=== PATIENT | male | born 2000 | race African-American/Black ===

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

== ENCOUNTER 2019-02-22 17:53 | Emergency (ER) | payer OTHER ==
--- NOTE | 2019-02-22 18:15 | PDOC ---
Rapid Medical Evaluation Chief Complaint: Laceration Time Seen by Provider: 02/22/19 18:12 Medical Evaluation: Allergies Allergy/AdvReac Type Severity Reaction Status Date / Time amoxicillin Allergy Verified 05/13/17 04:58 02/22/19 18:13 I have performed a brief in person evaluation of the patient. The patient presents with CC: Laceration HPI: Pt states that he cut his left hand at work at 1130 this morning. Pt's tetanus is not UTD PE: Skin: 1 cm laceration between the first and second digits left hand. HEENT: Oropharynx clear Lungs: Clear Heart: RRR MS: Moves all extremities Neuro: Alert Psych: Appropriate affect The patient will proceed to [facility] for further evaluation. Discharge Disposition - Diagnosis Laceration - Referrals - Patient Instructions - Post Discharge Activity
[2019-02-22 18:17] VITALS: BP 120/72; PULSE 74; TEMP 97.9; BMI 25.8
[2019-02-22] MEDS ORDERED: DIPHTH,PERTUSS(ACELL),TET 0.5 ML DISP.SYRIN IM ONE ×2 (18:31→18:52)
--- NOTE | 2019-02-22 18:36 | PDOC ---
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 He states the knife flew out of process machine operator and lacerated his hand. Past History - Past Medical History Allergies/Adverse Reactions: Allergies Allergy/AdvReac Type Severity Reaction Status Date / Time amoxicillin Allergy Verified 02/22/19 18:46 Home Medications: Ambulatory Orders NK [No Known Home Medication] 02/22/19 Anemia: No Asthma: No Cancer: No Cardiac Disorders: No CVA: No COPD: No DVT: No Dementia: No Diabetes: No Dialysis: No GI Disorders: No Disorders: No HTN: No Hypercholesterolemia: No Kidney Stones: No Liver Disease: No Psychiatric Problems: No Seizures: No Thyroid Disease: No Lung CA: No Other medical history: DENIES - Surgical History Abdominal Surgery: No Appendectomy: No Cardiac Surgery: No Cholecystectomy: No Gastric Stapling: No GI Surgery: No Lung Surgery: No Neurologic Surgery: No - Suicide/Smoking/Psychosocial Hx Smoking History: Never smoked Have you smoked in the past 12 months: No Information on smoking cessation initiated: No Hx Alcohol Use: No Drug/Substance Use Hx: No Substance Use Type: Alcohol Review of Systems - Review of Systems Integumentary: Yes: See HPI *Physical Exam - Vital Signs Last Vital Signs Temp Pulse Resp BP Pulse Ox 97.9 F 74 18 120/72 100 02/22/19 18:14 02/22/19 18:14 02/22/19 18:14 02/22/19 18:14 02/22/19 18:14 - Physical Exam Comments: 02/22/19 18:35 Left hand skin color and temperature are normal. There are no gross sensorimotor deficits in the hand full range of motion of all fingers. There is a 1 cm laceration between the thumb and the second finger and in the webspace exposing a small amount of subcutaneous fat. *DC/Admit/Observation/Transfer Diagnosis at time of Disposition: Laceration - Discharge Dispostion Disposition: HOME Condition at time of disposition: Stable Decision to Admit order: No - Referrals Referrals: Rebel Pierre MD [Staff Physician] - - Patient Instructions Printed Discharge Instructions: DI for Laceration Repair Additional Instructions: Please take Tylenol and Motrin as directed for pain. Your tetanus was updated today. Leave the dressing on for the next 48 hours after 48 hours you may remove the dressing and wash her hand with soap and water. Leave it open to air. If you need to work please cover with a dry sterile dressing. He may follow -up with hand surgery in 1-2 days for further evaluation and treatment options. Or return to the emergency room in 10 days for suture removal. Sutures are removed at the 10 day marker after not before. Return to the emergency room sooner if problems develop such as redness pain drainage or swelling from the area. These may be signs of infection. - Post Discharge Activity
--- NOTE | 2019-02-22 19:23 | PDOC ---
*Physical Exam - Vital Signs Last Vital Signs Temp Pulse Resp BP Pulse Ox 97.9 F 74 18 120/72 100 02/22/19 18:14 02/22/19 18:14 02/22/19 18:14 02/22/19 18:14 02/22/19 18:14 ED Treatment Course - Medications Given in the ED: ED Medications Discontinued Medications Generic Name Dose Route Start Last Admin Trade Name Freq PRN Reason Stop Dose Admin Diphtheria/Tetanus/Acell Pertussis 0.5 ml 02/22/19 18:31 02/22/19 18:55 Boostrix - IM 02/22/19 18:32 0.5 ml .ONCE ONE Administration *DC/Admit/Observation/Transfer Diagnosis at time of Disposition: Laceration - Referrals - Patient Instructions - Post Discharge Activity Procedures - Laceration/Wound Repair Left Distal Volar Hand Wound Length: 2.6 to 5.0 cm Wound Explored: clean Wound's Depth, Shape: superficial Irrigated w/ Saline: Yes Betadine Prep: Yes Anesthesia: 1% Lidocaine Amount of Anesthetic (ccs): 5 Wound Debrided: minimal Wound Repaired With: Sutures Suture Size/Type: 5:0 Number of Sutures: 3 Layer Closure: No Sterile Dressing Applied: Yes Splint Applied: No
== END 2019-02-22 19:41 | disposition home or self-care (01) ==
LOC: JERFT 17:53
PROC: 0HQGXZZ Repair Left Hand Skin, External Approach (ICD-10-PCS; principal; 2019-02-22)
PROC: 3E0234Z Introduction of Serum, Toxoid and Vaccine into Muscle, Percutaneous Approach (ICD-10-PCS; 2019-02-22)
DX: S61.412A Laceration without foreign body of left hand, initial encounter (principal); W26.0XXA Contact with knife, initial encounter; Y93.G1 Activity, food preparation and clean up; Y92.89 Other specified places as the place of occurrence of the external cause; Y99.0 Civilian activity done for income or pay
CPT/HCPCS: 90715; 99281-25

== ENCOUNTER 2019-03-04 13:22 | Emergency (ER) | payer OTHER ==
[2019-03-04 13:26] VITALS: BP 120/69; PULSE 65; TEMP 98; BMI 26.6
--- NOTE | 2019-03-04 13:57 | PDOC ---
History of Present Illness - General Chief Complaint: Suture/Staple Removal(Here) Stated Complaint: REMOVE STITCHES Time Seen by Provider: 03/04/19 13:40 History Source: Patient Exam Limitations: No Limitations - History of Present Illness Initial Comments: 03/04/19 13:51 19 yo M w/ no sig PMHx comes in for suture removal. He had sutures placed in his L hand after sustaining a laceration on 02/22. He was trying to push down some onions in a [employer] while on, and the blade flew, causing him to sustain a hand laceration. No complaints today, wound healing well, no fever/chills, no NVD, applied bacitracin the first 3 days. No swelling, no discharge from wound. 03/04/19 14:09 Past History - Past Medical History Allergies/Adverse Reactions: Allergies Allergy/AdvReac Type Severity Reaction Status Date / Time amoxicillin Allergy Verified 02/22/19 18:46 Home Medications: Ambulatory Orders NK [No Known Home Medication] 02/22/19 Anemia: No Asthma: No Cancer: No Cardiac Disorders: No CVA: No COPD: No DVT: No Dementia: No Diabetes: No Dialysis: No GI Disorders: No Disorders: No HTN: No Hypercholesterolemia: No Kidney Stones: No Liver Disease: No Psychiatric Problems: No Seizures: No Thyroid Disease: No Lung CA: No - Surgical History Abdominal Surgery: No Appendectomy: No Cardiac Surgery: No Cholecystectomy: No Gastric Stapling: No GI Surgery: No Lung Surgery: No Neurologic Surgery: No - Suicide/Smoking/Psychosocial Hx Smoking History: Unknown if ever smoked Have you smoked in the past 12 months: No Hx Alcohol Use: No Drug/Substance Use Hx: No Substance Use Type: Alcohol Review of Systems - Review of Systems Able to Perform ROS?: Yes Constitutional: No: Chills, Fever, Malaise, Night Sweats HEENTM: No: Eye Pain, Recent change in vision, Throat Pain Respiratory: No: Cough, Shortness of Breath Cardiac (ROS): No: Chest Pain, Palpitations, Chest Tightness ABD/GI: No: Diarrhea, Nausea, Vomiting, Abdominal cramping : No: Dysuria, Hematuria Musculoskeletal: No: Back Pain Integumentary: No: Rash Neurological: No: Headache, Numbness, Dizziness Psychiatric: No: Change in Appetite Endocrine: No: Unexplained Weight Loss *Physical Exam - Vital Signs Last Vital Signs Temp Pulse Resp BP Pulse Ox 98 F 65 20 120/69 100 03/04/19 13:22 03/04/19 13:22 03/04/19 13:22 03/04/19 13:22 03/04/19 13:22 - Physical Exam General Appearance: Yes: Nourished. No: Apparent Distress HEENT: positive: SUNITHA, Normal ENT Inspection, Normal Voice. negative: Pale Conjunctivae, Scleral Icterus (R), Scleral Icterus (L) Neck: positive: Supple. negative: Decreased range of motion, Tender midline Respiratory/Chest: negative: Respiratory Distress, Accessory Muscle Use Cardiovascular: positive: Regular Rate Musculoskeletal: positive: Normal Inspection Extremity: positive: Normal Capillary Refill, Normal Range of Motion, Other (L hand with a 2.5-3cm laceration with [address] NO surrounding erythema/swelling, no discharge, no dehiscence, no tenderenss, no signs of infection. FROM all fingers including thumb with 5/5 strength, full sensory function. Goop cap refill. NVI). negative: Tender Integumentary: positive: Normal Color, Dry. negative: Jaundice, Rash Neurologic: positive: Fully Oriented, Alert, Normal Mood/Affect Medical Decision Making - Medical Decision Making 03/04/19 14:32 19 yo here for suture removal. 3 suture removed, using scissors and pick ups, no dehiscence. 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 Advised to keep the wound clean and dry until it heals completely. PMD follow up. Return for worsening/concerning symptoms. Pt verbalizes understanding and agrees with plan. *DC/Admit/Observation/Transfer Diagnosis at time of Disposition: Visit for suture removal - Discharge Dispostion Disposition: HOME Condition at time of disposition: Stable - Referrals - Patient Instructions Additional Instructions: Keep the wound clean and dry and covered until completely healed. FOllow up with your regular doctor. Return for worsening/concerning symptoms. - Post Discharge Activity
== END 2019-03-04 13:59 | disposition home or self-care (01) ==
LOC: JERFT 13:22 → JER 13:22 → JERFT 13:59
DX: Z48.817 Encounter for surgical aftercare following surgery on the skin and subcutaneous tissue (principal); Z48.02 Encounter for removal of sutures
CPT/HCPCS: 99281-25

== ENCOUNTER 2020-05-28 00:54 | Emergency (ER) | payer OTHER ==
[2020-05-28 02:32] VITALS: BP 138/82; PULSE 66; TEMP 98.3; BMI 27.3
--- NOTE | 2020-05-28 03:02 | PDOC ---
*Physical Exam - Vital Signs Last Vital Signs Temp Pulse Resp BP Pulse Ox 98.3 F 66 16 138/82 98 05/28/20 01:00 05/28/20 01:00 05/28/20 01:00 05/28/20 01:00 05/28/20 01:00 Medical Decision Making - Medical Decision Making 05/28/20 03:02 Patient seen by the advanced practice provider under my supervision. Ancillary testing reviewed as necessary. I agree with plan as outlined by the advanced practice provider. Discharge - Discharge Information Problems reviewed: Yes Clinical Impression/Diagnosis: Closed boxer's fracture Qualifiers: Encounter type: initial encounter Qualified Code(s): S62.339A - Displaced fracture of neck of unspecified metacarpal bone, initial encounter for closed fracture Condition: Fair Disposition: HOME - Follow up/Referral Referrals: Derrick Valdes MD [Staff Physician] - Call tomorrow Leon Flores DO [Staff Physician] - Call tomorrow - Patient Discharge Instructions Patient Printed Discharge Instructions: DI for a Hand Fracture - Post Discharge Activity
--- NOTE | 2020-05-28 03:05 | PDOC ---
History of Present Illness - General Chief Complaint: Edema Stated Complaint: INJURY Time Seen by Provider: 05/28/20 02:46 History Source: Patient - History of Present Illness Initial Comments: 05/28/20 04:12 20-year-old male reports that he punched a wall complaining of right hand swelling and pain immediately after. Patient is able to make a fist with pain. Fifth finger unable to fully make a fist. Patient is noted to have abrasion to hand. Last tetanus unknown Occurred: reports: just prior to arrival Past History - Medical History Allergies/Adverse Reactions: Allergies Allergy/AdvReac Type Severity Reaction Status Date / Time amoxicillin Allergy Verified 05/28/20 02:32 Home Medications: Ambulatory Orders NK [No Known Home Medication] 02/22/19 Anemia: No Asthma: No Cancer: No Cardiac Disorders: No CVA: No COPD: No DVT: No Dementia: No Diabetes: No Dialysis: No GI Disorders: No Disorders: No HTN: No Hypercholesterolemia: No Kidney Stones: No Liver Disease: No Psychiatric Problems: No Seizures: No Thyroid Disease: No Lung CA: No - Surgical History Abdominal Surgery: No Appendectomy: No Cardiac Surgery: No Cholecystectomy: No Gastric Stapling: No GI Surgery: No Lung Surgery: No Neurologic Surgery: No - Psycho-Social/Smoking History Smoking History: Never smoked Have you smoked in the past 12 months: No - Substance Abuse Hx (Audit-C & DAST Scrn) How often the patient has a drink containing alcohol: Never Score: In Men: 4 or > Positive; In Women: 3 or > Positive: 0 Screen Result (Pos requires Nsg. Audit-10AR): Negative In the last yr the pt used illegal drug/Rx for NonMed reason: No Score: Yes response is considered Positive: 0 Screen Result (Positive result requires Nsg. DAST-10): Negative *Physical Exam - Vital Signs Last Vital Signs Temp Pulse Resp BP Pulse Ox 98.3 F 66 16 138/82 98 05/28/20 01:00 05/28/20 01:00 05/28/20 01:00 05/28/20 01:00 05/28/20 01:00 Procedures - Splinting Splint Location: Right: Hand Pre-Proc Neuro Vasc Exam: normal Hand-Made Type: orthoglass Splint Type: Yes: Ulnar (ulnar gutter splint) Post-Proc Neuro Vasc Exam: normal Pablo Bandage: 4" Sling: Yes Complications: No Post splint xray: Yes ED Progress Note - Progress Note Progress Note: 05/28/20 06:01 A: right boxer fracture P: xray: displaced 5th metcarpal. splint outpatient ortho follow up Medical Decision Making - Medical Decision Making 05/28/20 05:30 REPEAT XRAY SHOWS PERSISTENT DISplced fracture of 5th metacarpal fracture. patient is given referral to ortho for hand fracture evaluation.Patient is advised to have prompt follow-up patient verbalized understanding. Strict return precautions were reviewed with patient Discharge - Discharge Information Problems reviewed: Yes Clinical Impression/Diagnosis: Closed boxer's fracture Qualifiers: Encounter type: initial encounter Qualified Code(s): S62.339A - Displaced fracture of neck of unspecified metacarpal bone, initial encounter for closed fracture Condition: Fair Disposition: HOME - Follow up/Referral Referrals: Joe Hebert MD [Staff Physician] - Call tomorrow Dylon Amaro MD [Staff Physician] - Call tomorrow - Patient Discharge Instructions Patient Printed Discharge Instructions: DI for a Hand Fracture Additional Instructions: Keep hand in splint. It is very important that you follow-up with an orthopedic doctor as soon as possible. A referral was given to you. Return to the emergency room for any worsening symptom. You may take ibuprofen for pain - Post Discharge Activity Work/Back to School Note: Back to Work
[2020-05-28] MEDS ORDERED: DIPHTH,PERTUSS(ACELL),TET 0.5 ML DISP.SYRIN IM ONE ×2 (03:29→04:00)
[2020-05-28] MEDS ORDERED: IBUPROFEN 600 MG TABLET (FP) PO ONE ×2 (03:35→04:00)
[2020-05-28] MEDS ORDERED: LIDOCAINE HCL 2% (20ML MULTI-DOSE VIAL) ONE (04:24)
== END 2020-05-28 06:00 | disposition home or self-care (01) ==
LOC: JER 00:54
PROC: 3E0234Z Introduction of Serum, Toxoid and Vaccine into Muscle, Percutaneous Approach (ICD-10-PCS; principal; 2020-05-28)
PROC: 2W3CX1Z Immobilization of Right Lower Arm using Splint (ICD-10-PCS; principal; 2020-05-28)
DX: S62.336A Displaced fracture of neck of fifth metacarpal bone, right hand, initial encounter for closed fracture (principal); W22.8XXA Striking against or struck by other objects, initial encounter
CPT/HCPCS: 29126; 73130-TC-RT-FY; 90471; 90715; 99283-25

== ENCOUNTER 2020-06-05 10:18 | Day surgery (SDC) | payer OTHER ==
[2020-05-31 13:32] VITALS: BMI 29.1
[2020-06-05] MEDS ORDERED: LIDOCAINE HCL 2% (20ML MULTI-DOSE VIAL) ONE (11:23)
[2020-06-05] MEDS ORDERED: BUPIVACAINE HCL/PF 0.5% (5MG/ML) 10 ML VIAL ONE (11:23)
[2020-06-05] MEDS ORDERED: MIDAZOLAM HCL 2 MG/2 ML SINGLE DOSE VIAL ONE (11:28)
[2020-06-05] MEDS ORDERED: PROPOFOL 20 ML ONE (11:28)
[2020-06-05] MEDS ORDERED: LACTATED RINGERS SOLUTION 1,000 ML IV SCH (13:15)
[2020-06-05] MEDS ORDERED: PROMETHAZINE HCL 25 MG/1 ML VIAL ONE (14:06)
[2020-06-05 14:17] VITALS: TEMP 98
[2020-06-05 15:27] VITALS: BP 138/95; PULSE 74
--- NOTE | 2020-06-07 17:59 | OP ---
DATE OF OPERATION: 06/05/2020 PREOPERATIVE DIAGNOSIS: Right fifth metacarpal fracture displaced. POSTOPERATIVE DIAGNOSIS: Right fifth metacarpal fracture displaced. OPERATIVE PROCEDURE: Open reduction, internal fixation right fifth metacarpal fracture. SURGEON: Dylon Cruz MD. ANESTHESIA: General anesthesia. COMPLICATIONS: None. ESTIMATED BLOOD LOSS: Minimal. INDICATION FOR PROCEDURE: The patient is a 20-year-old with the above findings, indicated for operative treatment. Risks, benefits, and alternatives were discussed with the patient at length. Proper informed consent was obtained. PROCEDURE: After proper identification of the patient and correct operative site, patient was brought to the operating room and placed supine on the operating room table, all bony prominences well padded. General anesthesia was given. Intravenous antibiotics were given. Timeout procedure was performed. Right upper extremity was prepped and draped in the usual sterile fashion. Well padded tourniquet was placed as well as a sterile prep. Esmarch bandage to exsanguinate the right upper extremity. Tourniquet inflated to 250 mmHg. Longitudinal incision made over the dorsal aspect of the 5th metacarpal. Incision taken sharply through the skin with sharp and blunt dissection of the subcutaneous tissues. Extensor tendons and sensory nerves were carefully identified and protected. Significant callus formation was present, and this was debrided. Fracture was found to be 100% displaced with interposed soft tissue of the intrinsic muscles interposed in the fracture. This was cleared out of the fracture site. The fracture was reduced, and then held in the reduced position with an Arthrex 6-hole, 1.6-mm plate and screws. All screws were bicortical screws without any locking screws placed. This allowed secure fixation of the fracture and anatomic alignment confirmed radiographically as well as visually. The wound was irrigated and repaired in layers including the soft tissue over the plate with a 4-0 Vicryl and 4-0 Monocryl sutures. Steri-Strips and sterile dressings were applied, splint was placed. The patient was reversed from anesthesia and brought to the recovery room in stable condition. He tolerated the procedure well. DYLON CRZU M.D. [id number]
== END 2020-06-05 15:20 | disposition home or self-care (01) ==
LOC: FASU 10:18
PROVIDERS: ATTEND Orthopaedic Surgery Hand Surgery
PROC: 0PSP04Z Reposition Right Metacarpal with Internal Fixation Device, Open Approach (ICD-10-PCS; principal; 2020-06-05 11:57)
DX: S62.326A Displaced fracture of shaft of fifth metacarpal bone, right hand, initial encounter for closed fracture (principal); X58.XXXA Exposure to other specified factors, initial encounter; Y93.9 Activity, unspecified; Y92.9 Unspecified place or not applicable
CPT/HCPCS: 73140-TC-RT-FY; 94760

== ENCOUNTER 2021-01-23 21:17 | Emergency (ER) | payer OTHER ==
[2021-01-23 21:24] VITALS: BP 126/69; PULSE 93; TEMP 98.2; BMI 30.7
== END 2021-01-23 22:32 | disposition home or self-care (01) ==
LOC: JER 21:17
DX: J06.9 Acute upper respiratory infection, unspecified (principal)
CPT/HCPCS: 99284-25; C9803; U0003

== ENCOUNTER 2022-04-17 03:49 | Emergency (ER) | payer OTHER ==
[2022-04-17 03:58] VITALS: BMI 30.7
[2022-04-17] MEDS ORDERED: FAMOTIDINE 20 MG TABLET PO ONE (04:25)
[2022-04-17] MEDS ORDERED: ACETAMINOPHEN 325 MG TABLET (FP) PO ONE (04:25)
[2022-04-17] MEDS ORDERED: MAG HYDROX/AL HYDROX/SIMETH -MYLANTA- ORAL SUSPENSION PO ONE (04:25)
[2022-04-17] MEDS ORDERED: ACETAMINOPHEN 325 MG TABLET (FP) ONE (05:34)
[2022-04-17] MEDS ORDERED: MAG HYDROX/AL HYDROX/SIMETH 30 ML UNIT-DOSE CUP ONE (05:34)
[2022-04-17] MEDS ORDERED: FAMOTIDINE 20 MG TABLET ONE (05:34)
[2022-04-17 05:38] LABS: URINE APPEARANCE CLEAR; URINE BILIRUBIN NEGATIVE (NEGATIVE); URINE COLOR YELLOW; URINE GLUCOSE (UA) NEGATIVE (NEGATIVE); URINE KETONE NEGATIVE (NEGATIVE); URINE LEUK ESTERASE NEGATIVE (NEGATIVE); URINE NITRITE NEGATIVE (NEGATIVE); URINE PROTEIN NEGATIVE (NEGATIVE); URINE UROBILINOGEN 0.2 mg/dL (0.2-1.0)
[2022-04-17 06:40] LABS: CALCIUM 9.4 mg/dL (8.5-10.1)
[2022-04-17 06:41] LABS: ALBUMIN 4.3 g/dl (3.4-5.0); BASO % 0.7 % (0-2.0); EOS % 0.6 % (0-4.5); HEMATOCRIT 44.3 % (35.4-49); HEMOGLOBIN 15.6 GM/dL (11.7-16.9); LYMPH % 31.8 % (8-40); MCHC 35.2 g/dl (32.0-35.9); MEAN CELL VOLUME 82.6 fl (80-96); MEAN PLT VOLUME 7.9 fl (7.5-11.1); MONO % 5.1 % (3.8-10.2); NEUT % 61.8 % (42.8-82.8); PLATELET COUNT 266 10^3/uL (134-434); RBC 5.36 M/mm3 (4.00-5.60); RDW 13.2 % (11.9-15.9); WHITE BLOOD COUNT 10.2 K/mm3 (4.0-10.0)
[2022-04-17 06:44] LABS: CREATININE 1.1 mg/dL (0.55-1.3)
[2022-04-17 06:45] LABS: BILIRUBIN,TOTAL 0.3 mg/dL (0.2-1)
[2022-04-17 06:46] LABS: TOT PROT 8.4 g/dl (6.4-8.2)
[2022-04-17 07:04] VITALS: BP 121/76; PULSE 62; TEMP 98.1
== END 2022-04-17 07:21 | disposition home or self-care (01) ==
LOC: JER 03:49
DX: R10.32 Left lower quadrant pain (principal)
CPT/HCPCS: 36415; 74176-TC; 80053; 81003; 83690; 85025; 87086; 99284-25

== ENCOUNTER 2023-11-21 23:18 | Emergency (ER) | payer OTHER ==
[2023-11-21 23:26] VITALS: BP 132/90; PULSE 60; RESP 20; TEMP 98.5; BMI 30.7
[2023-11-22] MEDS ORDERED: IBUPROFEN 400 MG TABLET (FP) PO ONE ×2 (00:09→00:10)
[2023-11-22] MEDS ORDERED: BUPIVACAINE HCL/PF 0.5% (5 MG/ML) 30 ML VIAL IJ ONE (00:14)
[2023-11-22] MEDS ORDERED: BUPIVACAINE HCL/PF 0.5% (5MG/ML) 10 ML VIAL ONE (00:17)
== END 2023-11-22 01:15 | disposition home or self-care (01) ==
LOC: JER 23:18
DX: K08.89 Other specified disorders of teeth and supporting structures (principal)
CPT/HCPCS: 99283-25

== ENCOUNTER 2023-11-22 18:10 | Emergency (ER) | payer OTHER ==
[2023-11-22 19:08] VITALS: BP 123/85; PULSE 69; RESP 18; TEMP 97.9; BMI 30.7
== END 2023-11-22 20:35 | disposition left against medical advice (07) ==
LOC: JERFT 18:10
DX: K08.89 Other specified disorders of teeth and supporting structures (principal)
CPT/HCPCS: 99281-25